=== PATIENT | female | born 1960 | race Caucasian/White ===

== ENCOUNTER 2016-06-20 09:22 | Emergency (ER) | payer OTHER ==
[~2016-06-20] VITALS: Ht 160 cm; Wt 58.5 kg
[~2016-06-20 09:22] MED LIST: ACET500C5 PO; D-ME118S6 PO; OSLT75C PO; omeprazole PO
[2016-06-20 09:25] VITALS: Ht 160 cm; Wt 58.5 kg
[2016-06-20 09:56] LABS: URINE BLOOD (Dip) POC 3+ (NEGATIVE)
--- NOTE | 2016-06-20 10:45 | RADRPT ---
PROCEDURE: XR Chest. CLINICAL INDICATION: Cough TECHNIQUE: Chest AP portable. COMPARISON: 05/02/2015 FINDINGS: The mediastinal structures are unremarkable. The heart is normal in size and configuration. The pu lmonary vascularity is normal. The lung lane are unremarkable. No consolidation is identified. The pleural spaces are unremarkable. The axial skeleton is unremarkable. IMPRESSION: No active intrathoracic disease. RPTAT: HGDB .Jesus Sage MD, MD Date Time Electronically viewed and signed by .Jesus Sage MD, MD on 06/20/2016 10:44 .B/
[2016-06-20] MEDS ORDERED: FLUT9.9S NASAL (10:52)
[2016-06-20] MEDS ORDERED: FEXO180T61 PO (10:52)
[2016-06-20] MEDS ORDERED: MED4DP PO (10:53)
[2016-06-20] MEDS ORDERED: PSEU120T51 PO (10:53)
--- NOTE | 2016-06-20 11:01 | ERD ---
ER Documentation Chief Complaint Date/Time DATE: 06/20/16 TIME: 10:57 Chief Complaint CHILLS,SORE THROAT,BACK PAIN HPI This is a 55-year-old female presents to the ER with multiple complaints. Patient states that she has chronic runny nose, postnasal drip and sore throat. For the last month patient has had a cough. Patient is also complaining of facial pressure and pain. Patient denies any green or yellow nasal discharge. She denies any fevers or chills. Patient denies any chest pain or shortness of breath. She is also complaining of urinary frequency and lower back pain. Patient denies any trauma to the back. She denies any urine or bowel incontinence she denies any saddle like anesthesia. She denies any numbness or tingling of her lower extremities. ROS 12 point review of systems was done, all negative except per HPI. Medications Home Meds Active Scripts Pseudoephedrine Hcl (Sudafed 12 Hour) 120 Mg Tablet.sa, 120 MG PO BID for 5 Days Prov:GABRIELLE LEHMAN 06/20/16 Methylprednisolone* (Medrol* DOSE PACK) 4 Mg/Dose-Pack Tab.ds.pk, 4 MG PO . DIRECTED for 6 Days, PACKET Prov:GABRIELLE LEHMAN 06/20/16 Fexofenadine Hcl* (Mariella*) 180 Mg Tablet, 180 MG PO DAILY, #30 TAB Prov:GABRIELLE LEHMAN 06/20/16 Fluticasone Propionate (Flonase Allergy Relief) 9.9 Ml [place].susp, 1 SPRAY NASAL BID, #1 BOTTLE TO EACH NOSTRIL Prov:GABRIELLE LEHMAN 06/20/16 Dextromethorphan Hb-Promethazine Hcl (Promethazine DM Syrup) 180 Ml Syrup, 5 ML PO Q6H Y for COUGH, #4 OZ Prov:GABRIELLE LEHMAN 05/02/15 Acetaminophen* (Tylophen*) 500 Mg Capsule, 2 CAP PO Q8H Y for PAIN AND OR ELEVATED TEMP, #20 CAP Prov:GABRIELLE LEHMAN 05/02/15 Oseltamivir Phosphate* (Tamiflu*) 75 Mg Capsule, 75 MG PO BID for 5 Days, CAP Prov:GABRIELLE LEHMAN 05/02/15 Reported Medications [omeprazole] No Conflict Check, PO DAILY 06/27/14 Allergies Allergies: Coded Allergies: No Known Allergy (Unverified , 06/27/14) PMhx/Soc History of Surgery: Yes (inginal hernia, bladder prolapse, L breast bx) Anesthesia Reaction: No Hx Neurological Disorder: No Hx Respiratory Disorders: Yes (asthma, last inhaler use 4 yrs ago) Hx Cardiac Disorders: No Hx Psychiatric Problems: No Hx Miscellaneous Medical Probl: No Hx Alcohol Use: No Hx Substance Use: No Hx Tobacco Use: No Physical Exam Vitals Vital Signs Date Time Temp Pulse Resp B/P Pulse Ox O2 Delivery O2 Flow Rate FiO2 06/20/16 09:25 98.7 88 18 122/68 98 Physical Exam GENERAL: The patient is well developed and appropriate for usual state of health , in no apparent distress. HEENT: Atraumatic. Conjunctivae are pink. Pupils equal, round, and reactive to light. Extraocular muscles are grossly intact. Bilateral tympanic membranes are clear with no evidence of erythema, bulging or perforation. No sinus tenderness. NECK: C-spine is soft and supple. There is no cervical lymphadenopathy. CHEST: Clear to auscultation bilaterally. There are no rales, wheezes or rhonchi. HEART: Regular rate and rhythm. No murmurs, clicks, rubs or gallops. EXTREMITIES: Full range of motion. Grossly neurovascularly intact. NEURO: Alert and oriented. Cranial nerves II through XII are intact. Results 24 hrs Laboratory Tests Test 06/20/16 09:55 Bedside Urine pH (LAB) 6.5 Bedside Urine Protein (LAB) Negative Bedside Urine Glucose (UA) Negative Bedside Urine Ketones (LAB) Negative Bedside Urine Blood 3+ Bedside Urine Nitrite (LAB) Negative Bedside Urine Leukocyte Esterase (L Negative Procedures/MDM This is a 55-year-old female presents to the ER with multiple complaints. Patient does have a past medical history of allergic rhinitis. At this time patient symptoms may be secondary to her allergies. She has not been treated for her allergies at this time. Suspicion for sinusitis is low as patient does not have any purulent nasal discharge. She is also afebrile and well- appearing. Patient likely has a sinus headache. Patient sore throat is likely due to postnasal drip. On chest x-ray there is no evidence of pneumonia or bronchitis. In regards to patient's urinary frequency there is no evidence of UTI, suspicion for pyelonephritis is low. Patient does not have any trauma to her back at this time I did not feel it was necessary to obtain an x-ray as she had no vertebral point tenderness and she had full range of motion of her back and lower extremities. Patient is neurovascularly intact and is able to ambulate without any problems. Patient will be sent home with Mariella, Flonase , Medrol Dosepak, Sudafed. Patient is to follow-up with her primary care doctor within 1-2 days return to ER sooner if symptoms worsen. My medical decision making was shared with the patient she understands and agrees with plan. Departure Diagnosis: Primary Impression: Allergic rhinitis Condition: Stable Patient Instructions: Sinus Headaches, Allergic Rhinitis Additional Instructions: Llame al doctor MAANA y aly katerin ZORA PARA DENTRO DE 1-2 BARRERA.Dgale a la secretaria que nosotros le instruimos hacer esta zora.Avise o llame si javed condicin se empeora antes de la zora. Regresa aqui si peor o no mejor. GABRIELLE LEHMAN Jun 20, 2016 11:01
== END 2016-06-20 11:27 | disposition home or self-care (01) ==
LOC: FTE 09:22
DX: J30.9 Allergic rhinitis, unspecified (principal); R05 Cough
CPT/HCPCS: 71010; 81003; Z7502

== ENCOUNTER 2016-12-19 02:11 | Emergency (ER) | payer OTHER ==
[~2016-12-19] VITALS: Ht 157.5 cm; Wt 60.1 kg
[~2016-12-19 02:11] MED LIST changes: +FEXO180T61 PO; +FLUT9.9S NASAL; +MED4DP PO; +PSEU120T51 PO
[2016-12-19 02:13] VITALS: Ht 157.5 cm; Wt 60.1 kg
[2016-12-19] MEDS ORDERED: ASPIRIN 325 MG TAB PO STA (02:46)
[2016-12-19] MEDS ORDERED: LIDOCAINE/MYLANTA 40 ML BTL PO STA (02:46)
[2016-12-19 03:13] LABS: BASOPHILS % 0.4 % (0.0-2.0); EOSINOPHILS # 0.1 10^3/ul (0.0-0.5); EOSINOPHILS % 1.4 % (0.0-7.0); HEMATOCRIT 37.5 % (37.0-47.0); HEMOGLOBIN 12.6 g/dl (12.0-16.0); LYMPHOCYTES # 2.5 10^3/ul (0.8-2.9); LYMPHOCYTES % 33.6 % (15.0-51.0); MEAN CORPUSCULAR HEMOGLOBIN 28.2 pg (29.0-33.0); MEAN CORPUSCULAR HGB CONC 33.6 g/dl (32.0-37.0); MEAN CORPUSCULAR VOLUME 83.9 fl (82.0-101.0); MEAN PLATELET VOLUME 10.1 fl (7.4-10.4); MONOCYTE # 0.6 10^3/ul (0.3-0.9); MONOCYTES % 7.6 % (0.0-11.0); NEUTROPHIL # 4.2 10^3/ul (1.6-7.5); NEUTROPHILS % 56.6 % (39.0-77.0); PLATELET COUNT 282 10^3/UL (140-415); RED BLOOD COUNT 4.47 10^6/ul (4.20-5.40); WHITE BLOOD COUNT 7.4 10^3/ul (4.8-10.8)
--- NOTE | 2016-12-19 03:29 | RADRPT ---
PROCEDURE: Chest. CLINICAL INDICATION: Chest pain. TECHNIQUE: Single frontal view of the chest was obtained. COMPARISON: 06/20/2016. FINDINGS: The cardiac silhouette is within normal limits. The aortic arch is unremarkable. There is no focal consolidation, vascular congestion or pleural effusion. There is no pneumothorax. IMPRESSION: No evidence for active cardiopulmonary disease. .Ronald Tang MD, MD Date Time Electronically viewed and signed by .Ronald Tang MD, MD on 12/19/2016 03:29 .T/
[2016-12-19 03:32] LABS: ANION GAP 9 (8-16); BLOOD UREA NITROGEN 12 mg/dl (7-20); CALCIUM 8.9 mg/dl (8.4-10.2); CARBON DIOXIDE 28 mmol/L (21-31); CHLORIDE 105 mmol/L (97-110); CREATININE 0.71 mg/dl (0.44-1.00); GLUCOSE 91 mg/dl (70-220); POTASSIUM 3.7 mmol/L (3.5-5.1); SODIUM 138 mmol/L (135-144)
[2016-12-19 03:42] LABS: B-TYPE NATRIURETIC PEPTIDE 79 PG/ML (0-125)
[2016-12-19 03:50] LABS: TROPONIN-I < 0.012 ng/ml (0.00-0.12)
[2016-12-19] MEDS ORDERED: RANI150T9 PO (04:38)
--- NOTE | 2016-12-19 04:43 | ERD ---
ER Documentation Chief Complaint Date/Time DATE: 12/19/16 TIME: 04:39 Chief Complaint intermittent cxhest pain x 4 days, sob HPI This 56-year-old female presents for chest pain on and off today that she feels sometimes in her throat and neck area as well. She has had some mild shortness of breath with it. Occasionally has nausea. Feels like a burning sensation going up the middle of her chest. ROS All systems reviewed and are negative except as per history of present illness. Medications Home Meds Active Scripts Ranitidine Hcl* (Zantac*) 150 Mg Tablet, 150 MG PO BID, #60 TAB Prov:PAPI MANDUJANO DO 12/19/16 Pseudoephedrine Hcl (Sudafed 12 Hour) 120 Mg Tablet.sa, 120 MG PO BID for 5 Days Prov:GABRIELLE LEHMAN 06/20/16 Methylprednisolone* (Medrol* DOSE PACK) 4 Mg/Dose-Pack Tab.ds.pk, 4 MG PO . DIRECTED for 6 Days, PACKET Prov:GABRIELLE LEHMAN 06/20/16 Fexofenadine Hcl* (Mariella*) 180 Mg Tablet, 180 MG PO DAILY, #30 TAB Prov:GABRIELLE LEHMAN 06/20/16 Fluticasone Propionate (Flonase Allergy Relief) 9.9 Ml [place].susp, 1 SPRAY NASAL BID, #1 BOTTLE TO EACH NOSTRIL Prov:GABRIELLE LEHMAN 06/20/16 Dextromethorphan Hb-Promethazine Hcl (Promethazine DM Syrup) 180 Ml Syrup, 5 ML PO Q6H Y for COUGH, #4 OZ Prov:GABRIELLE LEHMAN 05/02/15 Acetaminophen* (Tylophen*) 500 Mg Capsule, 2 CAP PO Q8H Y for PAIN AND OR ELEVATED TEMP, #20 CAP Prov:GABRIELLE LEHMAN 05/02/15 Oseltamivir Phosphate* (Tamiflu*) 75 Mg Capsule, 75 MG PO BID for 5 Days, CAP Prov:GABRIELLE LEHMAN 05/02/15 Reported Medications [omeprazole] No Conflict Check, PO DAILY 06/27/14 Allergies Allergies: Coded Allergies: No Known Allergy (Unverified , 06/27/14) PMhx/Soc History of Surgery: Yes (BLADDER, HERNIA) Anesthesia Reaction: No Hx Neurological Disorder: No Hx Respiratory Disorders: Yes (ASTHMA) Hx Cardiac Disorders: No Hx Psychiatric Problems: No Hx Miscellaneous Medical Probl: No Hx Alcohol Use: No Hx Substance Use: No Hx Tobacco Use: No Smoking Status: Never smoker Physical Exam Vitals Vital Signs Date Time Temp Pulse Resp B/P Pulse Ox O2 Delivery O2 Flow Rate FiO2 12/19/16 02:51 62 14 126/80 98 Room Air 12/19/16 02:51 Nasal Cannula 2 12/19/16 02:13 97.3 72 20 141/89 98 Physical Exam Const: [] No distress Head: Atraumatic Eyes: Normal Conjunctiva ENT: Normal External Ears, Nose and Mouth. Neck: Full range of motion..~ No meningismus. Resp: Clear to auscultation bilaterally Cardio: Regular rate and rhythm, no murmurs Abd: Soft, non tender, non distended. Normal bowel sounds Ext: No cyanosis, or edema Neur: Awake and alert Psych: Normal Mood and Affect Result Diagram: 12/19/160 12/19/16 0250 Results 24 hrs Laboratory Tests Test 12/19/16 02:50 White Blood Count 7.410^3/ul Red Blood Count 4.4710^6/ul Hemoglobin 12.6g/dl Hematocrit 37.5% Mean Corpuscular Volume 83.9fl Mean Corpuscular Hemoglobin 28.2pg Mean Corpuscular Hemoglobin Concent 33.6g/dl Red Cell Distribution Width 13.0% Platelet Count 77836^3/UL Mean Platelet Volume 10.1fl Neutrophils % 56.6% Lymphocytes % 33.6% Monocytes % 7.6% Eosinophils % 1.4% Basophils % 0.4% Nucleated Red Blood Cells % 0.0/100WBC Neutrophils # 4.210^3/ul Lymphocytes # 2.510^3/ul Monocytes # 0.610^3/ul Eosinophils # 0.110^3/ul Basophils # 0.010^3/ul Nucleated Red Blood Cells # 0.010^3/ul Sodium Level 138mmol/L Potassium Level 3.7mmol/L Chloride Level 105mmol/L Carbon Dioxide Level 28mmol/L Anion Gap 9 Blood Urea Nitrogen 12mg/dl Creatinine 0.71mg/dl Glucose Level 91mg/dl Calcium Level 8.9mg/dl Troponin I < 0.012ng/ml B-Type Natriuretic Peptide 79PG/ML Current Medications Medications (Trade) Dose Ordered Sig/Genevieve Route PRN Reason Start Time Stop Time Status Last Admin Dose Admin Aspirin (Aspirin) 325 mg ONCE STAT PO 12/19/16 02:46 12/19/16 02:47 DC 12/19/16 03:09 Miscellaneous Medication (Gi Cocktail (2)) 40 ml ONCE STAT PO 12/19/16 02:46 12/19/16 02:47 DC 12/19/16 03:10 Procedures/[facility] 56-year-old female with chest pain. I have low suspicion for acute coronary syndrome because of symptoms described in relief of pain with GI cocktail almost immediately. Is also given 325 mg aspirin. Nonischemic EKG and negative troponin. She remains stable on a monitor. We will discharge her with Zantac twice daily as well as instructions see her primary care doctor and obtain an echocardiogram. Return precautions given as well. EKG interpretation: Normal sinus rhythm rate of 61, first-degree AV block, normal axis, no ST or T-wave changes concerning for acute ischemia. On interpretation: Normal sinus rhythm arrhythmia Davide interpretation: I see no acute process, see no widened mediastinum, I see no pneumothorax is seen no infiltrates, no pulmonary edema, no fractures Departure Diagnosis: Primary Impression: GERD with apnea Additional Impression: Chest pain Condition: Stable Patient Instructions: Chest Pain, Uncertain Cause, Gerd (Adult) Additional Instructions: Llame al doctor MINANA y aly katerin ZORA PARA DENTRO DE 2-3 BARRERA. Consigue katerin zora para un echocardiograma. Dgale a la secretaria que nosotros le instruimos hacer esta zora.Avise o llame si javed condicin se empeora antes de la zora. Regresa aqui si peor o no mejor. PAPI MANDUJANO DO Dec 19, 2016 04:43
[2016-12-19 04:52] VITALS: BP 118/72; PULSE 72; RESP 20
== END 2016-12-19 04:55 | disposition home or self-care (01) ==
LOC: E/R 02:11
DX: K21.0 Gastro-esophageal reflux disease with esophagitis (principal); R07.9 Chest pain, unspecified; J45.909 Unspecified asthma, uncomplicated
CPT/HCPCS: 36415; 71010; 80048; 83880; 84484; 85025; 93005; Z7502; Z7610

== ENCOUNTER 2018-05-06 03:44 | Emergency (ER) | payer SELFPAY ==
[~2018-05-06] VITALS: Ht 157.5 cm; Wt 56.8 kg
[~2018-05-06 03:44] MED LIST changes: +OSEL75CA23 PO; -OSLT75C PO; +PSEU120T12 PO; -PSEU120T51 PO; +RANI150T35 PO
[2018-05-06 03:49] VITALS: BP 133/81; PULSE 78; RESP 16; Ht 157.5 cm; Wt 56.8 kg
--- NOTE | 2018-05-06 04:20 | ERD ---
ER Documentation Chief Complaint Chief Complaint PT C/O PRODUCTIVE COUGH WITH YELLOW/GREEN SPUTUMX3 WEEKS. HPI There is a 57-year-old female who presents emergency department with complaints of cough for about 3 weeks. No shoulder pain, chest pain. Past medical history of asthma. M1. ROS All systems reviewed and are negative except as per history of present illness. Medications Home Meds Active Scripts Albuterol Sulfate* (Ventolin HFA*) 18 Gm Hfa.aer.ad, 2 PUFF INHALATION Q4H PRN for WHEEZING, #1 INHALER Prov:PASKVNG DEAL F 05/06/18 Ibuprofen* (Motrin*) 600 Mg Tab, 600 MG PO Q6H PRN for PAIN AND OR ELEVATED TEMP, #30 TAB Prov:KVNG PALACIOS 05/06/18 Benzonatate* (Tessalon Perle*) 100 Mg Capsule, 100 MG PO Q8H PRN for COUGH, #14 CAP Prov:PASILAKVNG CASTILLO F 05/06/18 Amoxicillin/Potassium Clav (Amox-Clav 875-125 mg Tablet) 875-125 mg Tab, 1 TAB PO BID for 10 Days, #20 TAB Prov:KVNG PALACIOS 05/06/18 Ranitidine Hcl* (Zantac*) 150 Mg Tablet, 150 MG PO BID, #60 TAB Prov:PAPI MANDUJANO DO 12/19/16 Pseudoephedrine Hcl (Sudafed 12 Hour) 120 Mg Tablet.sa, 120 MG PO BID for 5 Days Prov:GABRIELLE LEHMAN 06/20/16 Methylprednisolone* (Medrol* DOSE PACK) 4 Mg/Dose-Pack Tab.ds.pk, 4 MG PO . DIRECTED for 6 Days, PACKET Prov:GABRIELLE LEHMAN 06/20/16 Fexofenadine Hcl* (Mariella*) 180 Mg Tablet, 180 MG PO DAILY, #30 TAB Prov:GABRIELLE LEHMAN 06/20/16 Fluticasone Propionate (Flonase Allergy Relief) 9.9 Ml [employer].susp, 1 SPRAY NASAL BID, #1 BOTTLE TO EACH NOSTRIL Prov:GABRIELLE LEHMAN 06/20/16 Dextromethorphan Hb-Promethazine Hcl (Promethazine DM Syrup) 180 Ml Syrup, 5 ML PO Q6H PRN for COUGH, #4 OZ Prov:DOMINIK,GABRIELLE C 05/02/15 Acetaminophen* (Tylophen*) 500 Mg Capsule, 2 CAP PO Q8H PRN for PAIN AND OR ELEVATED TEMP, #20 CAP Prov:GABRIELLE LEHMAN 05/02/15 Oseltamivir Phosphate* (Tamiflu*) 75 Mg Capsule, 75 MG PO BID for 5 Days, CAP Prov:GABRIELLE LEHMAN 05/02/15 Reported Medications [omeprazole] No Conflict Check, PO DAILY 06/27/14 Allergies Allergies: Coded Allergies: No Known Allergy (Unverified , 06/27/14) PMhx/Soc History of Surgery: Yes (BLADDER, HERNIA) Anesthesia Reaction: No Hx Neurological Disorder: No Hx Respiratory Disorders: Yes (ASTHMA) Hx Cardiac Disorders: No Hx Psychiatric Problems: No Hx Miscellaneous Medical Probl: No Hx Alcohol Use: No Hx Substance Use: No Hx Tobacco Use: No Physical Exam Vitals Vital Signs Date Temp Pulse Resp B/P (MAP) Pulse Ox O2 O2 Flow FiO2 Time Delivery Rate 05/06/18 98.1 78 16 133/81 97 03:49 (98) Physical Exam Const: No acute distress Head: Atraumatic Eyes: Normal Conjunctiva ENT: Normal External Ears, Nose and Mouth. Inflamed tonsils. There is frontal and maxillary sinus tenderness to palpation. Toleration secretion. Patent airway. Neck: Full range of motion. No meningismus. Resp: Clear to auscultation bilaterally Cardio: Regular rate and rhythm, no murmurs Abd: Soft, non tender, non distended. Normal bowel sounds Skin: No petechiae or rashes Back: No midline or flank tenderness Ext: No cyanosis, or edema Neur: Awake and alert Psych: Normal Mood and Affect Results 24 hrs Current Medications Medications Dose Sig/Genevieve Start Time Status Last (Trade) Ordered Route PRN Stop Time Admin Dose Reason Admin Ibuprofen 800 mg ONCE ONCE 05/06/18 DC 05/06/18 (Motrin) PO 06:30 06:22 05/06/18 06:30 Procedures/MDM Diagnostic tests: Chest x-ray: No acute process is seen within the chest. Treatment: Motrin. Re-evaluation: Denies pain. Differential diagnosis I have low suspicion for sepsis, meningitis, acute myocardial infarction, pneumonia. Final diagnosis: Bronchitis. Tonsillitis. Bronchitis. Prescription: Augmentin. Tessalon Perles. Motrin. Ventolin inhaler. Follow-up with PCP in the next 24-48 hours. Come back here in the emergency department for any new symptoms or any worsening symptoms. All questions and concerns were answered. Patient and family members verbalized understanding and agreed with plan of care. Hemodynamically stable on discharge. Departure Diagnosis: Primary Impression: Cough Additional Impressions: Bronchitis Tonsillitis Sinusitis Condition: Stable Additional Instructions: Follow-up with PCP in the next 24-48 hours. Come back here in the emergency department for any new symptoms or any worsening symptoms. KVNG PALACIOS May 06, 2018 04:20
[2018-05-06] MEDS ORDERED: AMOX1TAB10 PO (06:07)
[2018-05-06] MEDS ORDERED: ALBU18HF INHALATION (06:08)
[2018-05-06] MEDS ORDERED: BENZ-6 PO (06:08)
[2018-05-06] MEDS ORDERED: IBUP-1542 PO (06:08)
[2018-05-06] MEDS ORDERED: IBUPROFEN 800 MG TAB PO ONE (06:30)
== END 2018-05-06 06:25 | disposition home or self-care (01) ==
LOC: FTE 03:44
DX: J40 Bronchitis, not specified as acute or chronic (principal); J03.90 Acute tonsillitis, unspecified; J32.9 Chronic sinusitis, unspecified
CPT/HCPCS: 71046